=== PATIENT | male | born 1945 | race Caucasian/White ===

== ENCOUNTER 2023-06-22 23:05 | Inpatient (IN) ==
[2023-06-23 00:10] LABS: ABS Eosinophils 0.1 10^3/uL (0.0-0.5); ABS Lymphocytes 0.6 10^3/uL (1.0-4.8); ABS Monocytes 0.5 10^3/uL (0.0-1.1); ABS Neutrophils 1.5 10^3/uL (1.5-7.6); ABS Nucleated RBC 0.01 10^3/ul; Eosinophil % 2.7 %; Hematocrit 34.3 % (38-53); Mean Corpuscular Hemoglobin 35.8 pg (27-33); Mean Corpuscular Volume 102.3 fL (80-97); Mean Platelet Volume 5.9 fL (7.5-11.2); Nucleated Red Blood Cells % 0.2 /100 WBC (0.0-0.4); Platelet Count 110 10^3/uL (150-450); Red Blood Count 3.35 10^6/uL (4.06-5.63); White Blood Count 2.7 10^3/uL (3.6-10.2)
[2023-06-23 00:25] LABS: Albumin 3.8 g/dL (3.2-5.2); Albumin/Globulin Ratio 1.4 (1-3); CRP High Sensitivity 21.89 mg/L (<2.00); Calcium 8.6 mg/dL (8.6-10.3); Creatinine, Serum 7.04 mg/dL (0.67-1.17); Globulin 2.8 g/dL (2-4); Potassium 3.5 mmol/L (3.5-5.0); Total Bilirubin 0.5 mg/dL (0.2-1.0); Total Protein 6.6 g/dL (6.4-8.9); eGFR CKD-EPI 7.4 (>60)
[2023-06-23] MEDS ORDERED: Iodixanol (CONTRAST) 320 MG/ML 100 ML SDV IV ONE (00:55)
[2023-06-23] MEDS ORDERED: Enoxaparin 40 MG/0.4 ML SYR SUBCUT SCH (06:00)
[2023-06-23] MEDS ORDERED: Heparin 5000 UNITS/ML 1 mL VIAL SUBCUT SCH (06:00)
[2023-06-23] MEDS ORDERED: Vancomycin 750 MG in NS 0.9% 250 ml 250 ML IVPB SCH (06:33)
[2023-06-23] MEDS ORDERED: Vancomycin per Pharmacy 1 EA NOTE FOLLOW UP PRN ×2 (06:39→06:52)
[2023-06-23] MEDS ORDERED: Vancomycin 1,500 MG in NS 0.9% 250 ml 250 ML IVPB SCH ×2 (06:40→07:00)
[2023-06-23] MEDS ORDERED: Piperacillin/Tazobac 3.375 BAG 3.375 GM/100 ML BAG IV ONE (06:52)
[2023-06-23] MEDS ORDERED: Albuterol HFA INHALER 8 gm MDI INH PRN (06:53)
[2023-06-23] MEDS ORDERED: Vancomycin 1,500 MG in NS 0.9% 250 ml 250 ML IVPB ONE (07:00)
[2023-06-23] MEDS ORDERED: Zosyn per Pharmacy NOTE FOLLOW UP SCH ×2 (07:00)
[2023-06-23] MEDS ORDERED: ZOSYN 3.375 GM x ONE DOSE over 30 miuntes IV (07:00)
[2023-06-23] MEDS ORDERED: Dextrose 50% Syringe 50 ml 25 GM/50 ML SYRINGE IV PUSH PRN (08:14)
[2023-06-23] MEDS ORDERED: Insulin GLARGINE 100 un/ml 10 ml VIAL SUBCUT SCH (08:22)
[2023-06-23 10:12] VITALS: BP 178/88
== END 2023-06-23 10:45 | disposition home or self-care (01) | DRG 602 ==
LOC: ED 23:05 → EDHOLD 06-23 03:54 → SUATTDRO 06-23 03:54 → MED 06-23 06:00
PROVIDERS: ADMIT Student in an Organized Health Care Education/Training Program; ATTEND Internal Medicine

== ENCOUNTER 2023-06-23 11:40 | Inpatient (IN) ==
[2023-06-23] MEDS ORDERED: Piperacillin/Tazobac 3.375 BAG 3.375 GM/100 ML BAG IV ONE (15:02)
[2023-06-23] MEDS ORDERED: Vancomycin per Pharmacy 1 EA NOTE FOLLOW UP SCH (16:00)
[2023-06-23] MEDS ORDERED: Zosyn per Pharmacy NOTE FOLLOW UP SCH (16:00)
[2023-06-23] MEDS ORDERED: Dextrose 50% Syringe 50 ml 25 GM/50 ML SYRINGE IV PUSH PRN (16:41)
[2023-06-23] MEDS: ZOSYN 3.375 GM Q12H per EXTENDED INFUSION IV SCH (17:21)
[2023-06-23] MEDS ORDERED: Vancomycin 1000 MG in NS 0.9% 250 ML IVPB ONE (20:30)
[2023-06-23] MEDS: Heparin 5000 UNITS/ML 1 mL VIAL SUBCUT SCH (21:26)
[2023-06-24] MEDS: ZOSYN 3.375 GM Q12H per EXTENDED INFUSION IV SCH ×2 (04:30→16:43)
[2023-06-24] MEDS: Heparin 5000 UNITS/ML 1 mL VIAL SUBCUT SCH ×3 (05:49→21:48)
[2023-06-24 07:04] LABS: ABS Eosinophils 0.1 10^3/uL (0.0-0.5); ABS Lymphocytes 0.6 10^3/uL (1.0-4.8); ABS Monocytes 0.6 10^3/uL (0.0-1.1); ABS Neutrophils 2.2 10^3/uL (1.5-7.6); Eosinophil % 1.8 %; Hematocrit 33.9 % (38-53); Hemoglobin 11.8 g/dL (13.2-16.3); Lymphocyte % 17.3 %; Mean Corpuscular Hemoglobin 35.6 pg (27-33); Mean Corpuscular Hgb Conc 34.8 g/dL (31-36); Mean Corpuscular Volume 102.3 fL (80-97); Mean Platelet Volume 6.5 fL (7.5-11.2); Nucleated Red Blood Cells % 0.1 /100 WBC (0.0-0.4); Platelet Count 123 10^3/uL (150-450); Red Blood Count 3.31 10^6/uL (4.06-5.63); Red Cell Distribution Width 15.9 % (12-17); White Blood Count 3.5 10^3/uL (3.6-10.2)
[2023-06-24 07:11] LABS: Calcium 9.3 mg/dL (8.6-10.3); Creatinine, Serum 5.93 mg/dL (0.67-1.17); Magnesium 2.3 mg/dL (1.9-2.7); Potassium 4.4 mmol/L (3.5-5.0); eGFR CKD-EPI 9.1 (>60)
[2023-06-24] MEDS ORDERED: Albuterol HFA INHALER 8 gm MDI INH PRN (09:44)
[2023-06-24] MEDS ORDERED: NON FORMULARY MED (Insulin Aspart U-100 [Novolog Flexpen U-100 Insulin] 100 unit/mL (3 mL) SUBCUT SCH (09:45)
[2023-06-24] MEDS ORDERED: Insulin ASPART (NF) 1 UNIT SUBCUT SCH (11:00)
[2023-06-24 15:02] LABS: C Reactive Protein 26.59 mg/L (<8.01)
[2023-06-24] MEDS ORDERED: Insulin GLARGINE 100 un/ml 10 ml VIAL SUBCUT SCH (21:00)
[2023-06-24] MEDS: Insulin GLARGINE 100 un/ml 10 ml VIAL SUBCUT SCH (21:44)
[2023-06-25] MEDS: ZOSYN 3.375 GM Q12H per EXTENDED INFUSION IV SCH ×2 (04:35→17:18)
[2023-06-25] MEDS: Heparin 5000 UNITS/ML 1 mL VIAL SUBCUT SCH ×3 (05:36→20:53)
[2023-06-25 07:13] LABS: ABS Eosinophils 0.1 10^3/uL (0.0-0.5); ABS Lymphocytes 0.7 10^3/uL (1.0-4.8); ABS Monocytes 0.6 10^3/uL (0.0-1.1); Eosinophil % 2.3 %; Hematocrit 30.5 % (38-53); Hemoglobin 10.6 g/dL (13.2-16.3); Lymphocyte % 21.2 %; Mean Corpuscular Hemoglobin 35.8 pg (27-33); Mean Corpuscular Hgb Conc 34.9 g/dL (31-36); Mean Corpuscular Volume 102.8 fL (80-97); Mean Platelet Volume 6.6 fL (7.5-11.2); Nucleated Red Blood Cells % 0.1 /100 WBC (0.0-0.4); Platelet Count 105 10^3/uL (150-450); Red Blood Count 2.97 10^6/uL (4.06-5.63); White Blood Count 3.4 10^3/uL (3.6-10.2)
[2023-06-25 07:16] LABS: Albumin 3.3 g/dL (3.2-5.2); Albumin/Globulin Ratio 1.3 (1-3); Calcium 8.7 mg/dL (8.6-10.3); Creatinine, Serum 8.07 mg/dL (0.67-1.17); Globulin 2.5 g/dL (2-4); Magnesium 2.4 mg/dL (1.9-2.7); Potassium 4.4 mmol/L (3.5-5.0); Total Bilirubin 0.7 mg/dL (0.2-1.0); Total Protein 5.8 g/dL (6.4-8.9); eGFR CKD-EPI 6.3 (>60)
[2023-06-25 10:15] LABS: C Reactive Protein 29.53 mg/L (<8.01)
[2023-06-25] MEDS ORDERED: Albumin Human 25% 25 GM/100 ML BTL IV PRN (11:19)
[2023-06-25] MEDS ORDERED: NS 0.9% 1000 ml BAG 200 ML IV PRN (11:19)
[2023-06-25] MEDS ORDERED: NS 0.9% 1000 ml BAG 100 ML IV PRN (11:19)
[2023-06-25 12:42] LABS: Hepatitis B Surface Ab Not Immune (Immune)
[2023-06-25 13:46] LABS: Hepatitis B Surface Antigen Nonreactive (Nonreactive)
[2023-06-25] MEDS: Insulin GLARGINE 100 un/ml 10 ml VIAL SUBCUT SCH (20:52)
[2023-06-26] MEDS: ZOSYN 3.375 GM Q12H per EXTENDED INFUSION IV SCH ×2 (04:25→17:56)
[2023-06-26] MEDS ORDERED: Vancomycin Random Level NOTE FOLLOW UP ONE (05:30)
[2023-06-26 06:13] LABS: ABS Eosinophils 0.1 10^3/uL (0.0-0.5); ABS Lymphocytes 0.6 10^3/uL (1.0-4.8); ABS Monocytes 0.5 10^3/uL (0.0-1.1); Eosinophil % 2.8 %; Hematocrit 31.3 % (38-53); Hemoglobin 10.9 g/dL (13.2-16.3); Lymphocyte % 17.3 %; Mean Corpuscular Hemoglobin 35.5 pg (27-33); Mean Corpuscular Hgb Conc 34.8 g/dL (31-36); Mean Corpuscular Volume 102.1 fL (80-97); Mean Platelet Volume 6.3 fL (7.5-11.2); Platelet Count 101 10^3/uL (150-450); Red Blood Count 3.07 10^6/uL (4.06-5.63); Red Cell Distribution Width 15.6 % (12-17); White Blood Count 3.2 10^3/uL (3.6-10.2)
[2023-06-26 06:28] LABS: C Reactive Protein 23.61 mg/L (<8.01); Calcium 8.9 mg/dL (8.6-10.3); Creatinine, Serum 9.92 mg/dL (0.67-1.17); Potassium 4.7 mmol/L (3.5-5.0); eGFR CKD-EPI 4.9 (>60)
[2023-06-26] MEDS: Heparin 5000 UNITS/ML 1 mL VIAL SUBCUT SCH ×3 (06:38→21:13)
[2023-06-26] MEDS: Heparin 1,000 UNIT/ML 10 ml (10,000 UNITS) CATHLAB/DIALYSIS DIALYSIS PRN ×4 (08:40→11:42)
[2023-06-26] MEDS ORDERED: Vancomycin 750 MG in NS 0.9% 250 ML IVPB ONE (15:00)
[2023-06-26 15:45] LABS: Body Fluid WBC 1562 /mcL
[2023-06-26 15:48] LABS: Body Fluid Appearance Bloody; Body Fluid Color Red
[2023-06-26 16:22] LABS: Body Fluid Band 3 %; Body Fluid Mono 40 %; Body Fluid Total Cells Counted 200
[2023-06-26] MEDS: Insulin GLARGINE 100 un/ml 10 ml VIAL SUBCUT SCH (21:24)
[2023-06-27] MEDS: ZOSYN 3.375 GM Q12H per EXTENDED INFUSION IV SCH (05:07)
[2023-06-27] MEDS: Heparin 5000 UNITS/ML 1 mL VIAL SUBCUT SCH (05:09)
[2023-06-27 06:23] LABS: Hematocrit 32.9 % (38-53); Hemoglobin 11.4 g/dL (13.2-16.3); Mean Corpuscular Hemoglobin 35.4 pg (27-33); Mean Corpuscular Hgb Conc 34.6 g/dL (31-36); Mean Corpuscular Volume 102.1 fL (80-97); Mean Platelet Volume 6.7 fL (7.5-11.2); Platelet Count 107 10^3/uL (150-450); Red Blood Count 3.22 10^6/uL (4.06-5.63); Red Cell Distribution Width 16.4 % (12-17); White Blood Count 3.8 10^3/uL (3.6-10.2)
[2023-06-27 06:50] LABS: Albumin 3.6 g/dL (3.2-5.2); Albumin/Globulin Ratio 1.3 (1-3); C Reactive Protein 21.88 mg/L (<8.01); Creatinine, Serum 6.62 mg/dL (0.67-1.17); Globulin 2.7 g/dL (2-4); Magnesium 2.2 mg/dL (1.9-2.7); Potassium 4.1 mmol/L (3.5-5.0); Total Bilirubin 0.7 mg/dL (0.2-1.0); Total Protein 6.3 g/dL (6.4-8.9)
[2023-06-27 10:03] VITALS: BP 137/80
[2023-06-27 15:40] LABS: Folate > 20.00 ng/mL (5.90-24.80); Vitamin B12 707 pg/mL (180-914)
[2023-06-28] MEDS ORDERED: Vancomycin Random Level NOTE FOLLOW UP ONE (06:00)
[2023-06-29 10:04] LABS: BF PH 7.4
== END 2023-06-27 14:30 | disposition home or self-care (01) | DRG 564 ==
LOC: SUATTDRO 15:47 → MED 15:47
PROVIDERS: ADMIT Student in an Organized Health Care Education/Training Program; ATTEND Internal Medicine

== ENCOUNTER 2024-02-18 05:51 | Observation (INO) ==
[~2024-02-18 05:51] MED LIST: Metoclopramide 5 MG/ML VIAL (10 mg) IV PRN; NS 0.45% 1000 ml BAG 1,000 ML IV SCH; Naloxone 0.4 mg VIAL 0.4 mg/ml 1 ml VIAL IV PRN; Ondansetron 4 mg VIAL 2 MG/ML 2 ml VIAL IV PRN
[2024-02-18] MEDS ORDERED: fentaNYL 100 mcg/2 ml 50 MCG/ML VIAL ONE ×3 (07:16→12:58)
[2024-02-18] MEDS ORDERED: Midazolam 2 mg/2 ml VIAL 1 mg/ml 2 ml VIAL (2 mg) ONE (07:17)
[2024-02-18] MEDS ORDERED: Chlorhexidine MOUTHWASH 0.12% 15 ML UDC ONE (07:36)
[2024-02-18] MEDS ORDERED: Scopolamine 1 mg/72hr PATCH ONE (07:53)
[2024-02-18] MEDS ORDERED: ceFAZolin 2 GM in NS PREMIX 2 GM/100 ML BAG IVPB ONE (07:54)
[2024-02-18 08:28] LABS: Rapid COVID-19 Molecular Undetected (Undetected)
[2024-02-18] MEDS ORDERED: Sevoflurane BOTTLE ONE (08:40)
[2024-02-18] MEDS ORDERED: Rocuronium 50 mg VIAL 10 mg/ml 5 ml VIAL (50 mg) ONE (09:24)
[2024-02-18] MEDS ORDERED: Lidocaine 1% w EPI 1:100,000 MDV 20 ML VIAL ONE (09:49)
[2024-02-18] MEDS ORDERED: Gelfoam Sponge SIZE 100 SPONGE ONE (09:50)
[2024-02-18] MEDS ORDERED: Thrombin 5,000 UNITS(BOVINE) for Ultrasound Guided Pseudoaneursym ONE ×2 (09:50→10:29)
[2024-02-18] MEDS ORDERED: ceFAZolin VIAL VIAL ONE (09:50)
[2024-02-18 10:34] LABS: Potassium, Whole Blood 5.4 mmol/L (3.4-4.5)
[2024-02-18] MEDS ORDERED: HYDROmorphone 0.5 MG/0.5 ML SYRINGE ONE (11:27)
[2024-02-18] MEDS ORDERED: Ondansetron 4 mg VIAL 2 MG/ML 2 ml VIAL ONE (12:07)
[2024-02-18] MEDS ORDERED: Propofol 10 MG/ML 20 ML BTL ONE (12:28)
[2024-02-18] MEDS ORDERED: Ondansetron 4 mg VIAL 2 MG/ML 2 ml VIAL IV PRN (12:49)
[2024-02-18] MEDS ORDERED: Dextran 70/Hypromellose Tears Eye Drops 15 ml BTL (for Artificials Tears) BOTH EYES PRN (12:49)
[2024-02-18] MEDS ORDERED: Albuterol HFA INHALER 8 gm MDI INH PRN (12:55)
[2024-02-18] MEDS: fentaNYL 100 mcg/2 ml 50 MCG/ML VIAL IV PRN (13:00)
[2024-02-18] MEDS ORDERED: NS 0.9% 1000 ml BAG 100 ML IV PRN (14:34)
[2024-02-18] MEDS ORDERED: Albumin Human 25% 25 GM/100 ML BTL IV PRN (14:34)
[2024-02-18] MEDS ORDERED: NS 0.9% 1000 ml BAG 200 ML IV PRN (14:34)
[2024-02-18] MEDS: Lactated Ringers 1000 ml BAG 1,000 ML IV SCH ×2 (14:51→15:00)
[2024-02-18] MEDS: Buffered Lidocaine 1% SYRIN 1 ml INTRADERM ONE (14:59)
[2024-02-18] MEDS: Scopolamine 1 mg/72hr PATCH TRANSDERM ONE (14:59)
[2024-02-18] MEDS: Acetaminophen IV 1 GM/100ML 1,000 MG/100 ML BAG IV ONE (14:59)
[2024-02-18 15:55] LABS: Calcium 8.9 mg/dL (8.6-10.3); Creatinine, Serum 9.16 mg/dL (0.67-1.17); Potassium 4.9 mmol/L (3.5-5.0); eGFR CKD-EPI 5.4 (>60)
[2024-02-18] MEDS ORDERED: Insulin GLARGINE 100 un/ml 10 ml VIAL SUBCUT SCH (21:00)
[2024-02-18] MEDS: Benzocaine/Menthol LOZ MT PRN (21:27)
[2024-02-18] MEDS: Insulin GLARGINE 100 un/ml 10 ml VIAL SUBCUT SCH (21:27)
[2024-02-19 07:59] LABS: ABS Eosinophils 0.1 10^3/uL (0.0-0.5); ABS Lymphocytes 0.6 10^3/uL (1.0-4.8); ABS Monocytes 0.6 10^3/uL (0.0-1.1); ABS Neutrophils 2.8 10^3/uL (1.5-7.6); ABS Nucleated RBC 0.01 10^3/ul; Eosinophil % 1.8 %; Hematocrit 30.6 % (38-53); Hemoglobin 10.7 g/dL (13.2-16.3); Lymphocyte % 14.6 %; Macrocytosis 1+; Mean Corpuscular Hemoglobin 36.9 pg (27-33); Mean Corpuscular Hgb Conc 34.8 g/dL (31-36); Mean Corpuscular Volume 105.9 fL (80-97); Mean Platelet Volume 6.7 fL (7.5-11.2); Nucleated Red Blood Cells % 0.2 %/100WBC (0.0-0.8); Platelet Count 116 10^3/uL (150-450); Red Blood Count 2.89 10^6/uL (4.06-5.63); White Blood Count 4.1 10^3/uL (3.6-10.2)
[2024-02-19 08:44] LABS: Calcium 8.5 mg/dL (8.6-10.3); Creatinine, Serum 10.26 mg/dL (0.67-1.17); Magnesium 2.6 mg/dL (1.9-2.7); Potassium 6.1 mmol/L (3.5-5.0); eGFR CKD-EPI 4.7 (>60)
[2024-02-19] MEDS: Morphine 2 MG/ML SYRINGE IV PRN (11:59)
[2024-02-19 14:52] LABS: Hepatitis B Surface Antigen Nonreactive (Nonreactive)
[2024-02-19 15:08] LABS: Hepatitis B Surface Ab Not Immune (Immune)
[2024-02-19] MEDS: Insulin GLARGINE 100 un/ml 10 ml VIAL SUBCUT ONE (22:50)
[2024-02-20 10:18] VITALS: BP 126/74
== END 2024-02-20 12:25 | disposition home or self-care (01) ==
LOC: OR 05:51 → SSU 05:51
PROVIDERS: ADMIT Neurological Surgery; ATTEND Neurological Surgery